=== PATIENT | female | born 2000 | race Caucasian/White ===

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

== ENCOUNTER 2021-05-20 12:04 | Emergency (ER) | payer MEDICAID, OTHER ==
[~2021-05-20] VITALS: Ht 154.9 cm; Wt 62.6 kg
[~2021-05-20 12:04] MED LIST: NITR100C6 PO
[2021-05-20] MEDS ORDERED: LIDOCAINE HCL 1% 20 ML VIAL IJ ONE (12:15)
[2021-05-20] MEDS ORDERED: LIDOCAINE HCL 1% 20 ML VIAL ONE ×2 (13:03→13:23)
[2021-05-20] MEDS ORDERED: NEOMY/BACITRA/POLYMYXIN B OINT UD PACKET TP ONE (14:45)
[2021-05-20] MEDS ORDERED: CEPH250C PO (14:48)
--- NOTE | 2021-05-20 15:52 | NUR ---
PT WAS EVALUATED BY DR ZHANG. PT WAS D/C'd TO HOME. D/C INSTRUCTIONS GIVEN TO THE PT BY DR ZHANG.
[2021-05-20 15:54] VITALS: BP 118/71
== END 2021-05-20 15:55 | disposition home or self-care (01) ==
LOC: ER 12:08
DX: O98.812 Other maternal infectious and parasitic diseases complicating pregnancy, second trimester (principal); L03.031 Cellulitis of right toe; L60.0 Ingrowing nail; O26.892 Other specified pregnancy related conditions, second trimester; M25.511 Pain in right shoulder; Z3A.14 14 weeks gestation of pregnancy
CPT/HCPCS: 11765; 73030; 99284; J3490; A4663

== ENCOUNTER 2021-07-10 10:17 | Emergency (ER) | payer MEDICAID ==
[~2021-07-10] VITALS: Ht 157.5 cm; Wt 63.5 kg
[~2021-07-10 10:17] MED LIST changes: +CEPH250C PO
[2021-07-10] MEDS ORDERED: ACETAMINOPHEN 325 MG TABLET PO ONE (11:30)
[2021-07-10] MEDS ORDERED: IBUPROFEN 400 MG TABLET PO ONE (11:30)
[2021-07-10] MEDS ORDERED: ACETAMINOPHEN 325 MG TABLET ONE (11:32)
[2021-07-10] MEDS ORDERED: IBUPROFEN 400 MG TABLET ONE (11:32)
[2021-07-10 11:39] VITALS: BP 126/80
--- NOTE | 2021-07-10 11:39 | NUR ---
Patient discharged to home in stable condition. Written and verbal after care instructions given. Patient verbalizes understanding of instructions. Stressed follow up or return to ER for worsening s/s.
== END 2021-07-10 11:39 | disposition home or self-care (01) ==
LOC: ER 10:17
DX: M65.4 Radial styloid tenosynovitis [de Quervain] (principal)
CPT/HCPCS: A4663

== ENCOUNTER 2021-09-26 11:05 | Emergency (ER) | payer MEDICAID ==
[~2021-09-26] VITALS: Ht 157.5 cm; Wt 63.5 kg
[2021-09-26] MEDS ORDERED: LIDOCAINE HCL 1% 20 ML VIAL IJ ONE (12:00)
[2021-09-26] MEDS ORDERED: HYDR-3972 PO (12:58)
[2021-09-26] MEDS ORDERED: NEOMY/BACITRA/POLYMYXIN B OINT UD PACKET TP ONE ×2 (13:00)
--- NOTE | 2021-09-26 13:01 | NUR ---
MD will change the precribed meds 2/2 status.
[2021-09-26] MEDS ORDERED: IBUP-1955 PO (13:11)
--- NOTE | 2021-09-26 13:23 | NUR ---
Patient discharged to home in stable condition. Written and verbal after care instructions given to patient. Patient verbalizes understanding of instructions. Stressed follow up with podiatry or return to ER for worsening s/s.
== END 2021-09-26 13:24 | disposition home or self-care (01) ==
LOC: ER 11:05
DX: L60.0 Ingrowing nail (principal)
CPT/HCPCS: 11765; 99283; J3490; A4663

== ENCOUNTER 2022-01-09 00:28 | Emergency (ER) | payer SELFPAY ==
[~2022-01-09 00:28] MED LIST changes: +HYDR-3972 PO; +IBUP-1955 PO
--- NOTE | 2022-01-09 01:20 | NUR ---
Patient was just called to be traiged at this time due to ER inudated with patient. But patient was not present in the waiting room or outside of ER.
--- NOTE | 2022-01-09 01:30 | NUR ---
Patient was called to be triaged but was not present in the waiting room or outside of ER. PATIENT WAS NOT TRIAGED OR SEEN BY ERMD.
== END 2022-01-09 05:00 | disposition left against medical advice (07) ==
LOC: ER 04:22
DX: Z53.21 Procedure and treatment not carried out due to patient leaving prior to being seen by health care provider (principal)
CPT/HCPCS: A4663

== ENCOUNTER 2025-05-06 15:34 | Emergency (ER) | payer MEDICAID ==
[~2025-05-06] VITALS: Ht 154.9 cm; Wt 74.8 kg
[2025-05-06 16:16] VITALS: BP 106/54
[2025-05-06] MEDS ORDERED: SULF1TAB48 PO (18:37)
[2025-05-07 00:52] VITALS: BP 102/53; TEMP 98.2; O2SAT 100
== END 2025-05-06 19:00 | disposition home or self-care (01) ==
LOC: ER 15:34
DX: L60.0 Ingrowing nail (principal); E11.9 Type 2 diabetes mellitus without complications; Z86.32 Personal history of gestational diabetes
CPT/HCPCS: A4606; A4663

== ENCOUNTER 2025-07-06 12:08 | Emergency (ER) | payer OTHER, MEDICAID ==
[~2025-07-06] VITALS: Ht 154.9 cm; Wt 65.8 kg
[~2025-07-06 12:08] MED LIST changes: -IBUP-1955 PO; +IBUP-2760 PO; +SULF1TAB48 PO
[2025-07-06 12:12] VITALS: BP 105/42
[2025-07-06] MEDS ORDERED: CLIN-188 PO (12:22)
[2025-07-06] MEDS ORDERED: MUPI22OI2 TP (12:22)
[2025-07-06] MEDS ORDERED: BACITRACIN ZINC OINT 15 GM TUBE ONE (13:03)
[2025-07-06] MEDS: NEOMY/BACITRA/POLYMYXIN B OINT UD PACKET TP ONE (13:13)
[2025-07-06 13:34] VITALS: BP 105/42; TEMP 98.4; O2SAT 97
== END 2025-07-06 13:15 | disposition home or self-care (01) ==
LOC: ER 12:08
DX: L60.0 Ingrowing nail (principal); E11.9 Type 2 diabetes mellitus without complications; Z86.32 Personal history of gestational diabetes
CPT/HCPCS: A4606; A4663